=== PATIENT | female | born 1940 | race Caucasian/White ===

== ENCOUNTER 2020-05-10 08:05 | Day surgery (SDC) | payer MEDICARE, BC ==
[~2020-05-10] VITALS: Ht 165.1 cm; Wt 62.6 kg
[2020-05-10] VITALS (10 sets, daily range): BP systolic 133–158; BP diastolic 59–86
[~2020-05-10 08:05] MED LIST: AMLODIPINE BESY10 MG ORAL; LEXAPRO10 MG ORAL; POTASSIUM99 M3 PO; PREMARIN1.25 MG PO; PRESERVISION L1 EACH PO; SIMVASTATIN10 MG ORAL; ceFAZolin sod 1 GM in NS 55 ML IVPB ONE; vitamin D3 PO
--- NOTE | 2020-05-10 08:13 | Pre-Procedure Note/Attestation ---
Pre-Procedure Note/Attestation Complete Prior to Procedure Planned Procedure: not applicable Procedure Narrative: cystocele repair vaginal sling cystoscopy Indications for Procedure Pre-Operative Diagnosis: stress incontinence Attestation I attest that I discussed the nature of the procedure; its benefits; risks and complications; and alternatives (and the risks and benefits of such alternatives ), prior to the procedure, with the patient (or the patient's legal risk control field representative). I attest that, if there was a reasonable possibility of needing a blood transfusion, the patient (or the patient's legal risk control field representative) was given the [facility] standardized written summary, pursuant to the Kasi Morenita Blood Safety Act ([place] Health and Safety Code # 1645, as amended). I attest that I re-evaluated the patient just prior to the surgery and that there has been no change in the patient's H&P, except as documented below: Buster Mendoza MD May 10, 2020 08:13
[2020-05-10] MEDS ORDERED: NeoSporin Gu Irrig 1ml Amp IRRIG ONE (09:16)
[2020-05-10] MEDS ORDERED: Bacitracin 50000 Units Vial ONE (09:16)
[2020-05-10] MEDS ORDERED: LR 1000ml 1,000 ML IVLG SCH (09:55)
--- NOTE | 2020-05-10 09:59 | Anethesia Preoperative Eval ---
Anesthesia Pre-op PMH/ROS General Date of Evaluation: May 10, 2020 Time of Evaluation: 10:42 Anesthesiologist: Horace ASA Score: ASA 3 Mallampati Score Class I : Soft palate, uvula, fauces, pillars visible Class II: Soft palate, uvula, fauces visible Class III: Soft palate, base of uvula visible Class IV: Only hard plate visible Mallampati Classification: Class II Surgeon: Kelly Diagnosis: Abd Pain Surgical Procedure: Vaginal Sling, Cystocele Repair Anesthesia History: none Family History: no anesthesia problems Allergies: Coded Allergies: MEPERIDINE (Verified Allergy, Unknown, 05/08/20) Medications: see eMAR Patient NPO?: Yes Past Medical History Cardiovascular: Reports: HTN, other - HL Neurologic/Psychiatric: Reports: depression/anxiety PSxH Narrative: Cholecystectomy, L Elbow ORIF Anesthesia Pre-op Phys. Exam Physician Exam Last Vital Signs Date Time Temp Pulse Resp B/P (MAP) Pulse Ox O2 Delivery O2 Flow Rate FiO2 05/10/20 08:50 Room Air 05/10/20 08:47 97.0 50 18 138/77 100 Constitutional: NAD Neurologic: CN 2-12 intact Cardiovascular: RRR Respiratory: CTA Gastrointestinal: S/NT/ND Airway Exam Mallampati Score: Class II MO: full ROM: limited Teeth: missing, intact Anesthesia Pre-op A/P Risk Assessment & Plan Assessment: ASA 3 Plan: GA, SED, GlideScope Status Change Before Surgery: No Pre-Antibiotics Dru Gram Ancef IV Given Within 1 Hr of Incision: Yes Time Given: 10:46 Malcolm Vu MD May 10, 2020 09:59
[2020-05-10] MEDS ORDERED: Labetalol 5mg/ml 20ml vial IV PRN (10:00)
[2020-05-10] MEDS ORDERED: Acetaminophen (Non formulary) 100 ML IV ONE (10:00)
[2020-05-10] MEDS ORDERED: Ketorolac 30mg Inj IV PRN ×2 (10:00)
[2020-05-10] MEDS ORDERED: DiphenhydrAMINE 50mg/ml Inj IVP PRN (10:00)
[2020-05-10] MEDS ORDERED: HYDROcodone/Acetamin 7.5/325 tab ORAL PRN (10:00)
[2020-05-10] MEDS ORDERED: oxyCODONE HCL/Acetaminophen 5/325mg ORAL PRN (10:00)
[2020-05-10] MEDS ORDERED: HYDROcodone/Acetamin 5/325 tab ORAL PRN ×2 (10:00→11:30)
[2020-05-10] MEDS ORDERED: LORazepam Inj 2mg/ml 1ml IV PRN (10:00)
[2020-05-10] MEDS ORDERED: Midazolam 2mg/2ml Inj IVP PRN (10:00)
[2020-05-10] MEDS ORDERED: Hydromorphone 0.5mg/0.5ml inj IVP PRN (10:00)
[2020-05-10] MEDS ORDERED: Atropine Sulfate 0.4mg/ml inj IVP PRN (10:00)
[2020-05-10] MEDS ORDERED: Metoclopramide 10mg/2ml Inj IVP PRN (10:00)
--- NOTE | 2020-05-10 10:00 | Immediate Post-Op Evaluation ---
Immediate Post-Op Evalulation Immediate Post-Op Evalulation Procedure: Vaginal Sling, Cystocele Repair Date of Evaluation: May 10, 2020 Time of Evaluation: 11:49 IV Fluids: 800 LR Blood Products: 0 Estimated Blood Loss: 30 Urinary Output: 0 Blood Pressure Systolic: 178 Blood Pressure Diastolic: 99 Pulse Rate: 84 Respiratory Rate: 16 O2 Sat by Pulse Oximetry: 98 Temperature (Fahrenheit): 97.6 Pain Score (1-10): 2 Nausea: No Vomiting: No Complications 0 Patient Status: awake, reacts, patent, extubated, none Hydration Status: adequate Dru Gram Ancef IV Given Within 1 Hr of Incision: Yes Time Given: 10:46 Malcolm Vu MD May 10, 2020 10:00
--- NOTE | 2020-05-10 10:01 | 48 Hour Post Anesthesia Eval ---
Post Anesthesia Evaluation Procedure: Vaginal Sling, Cystocele Repair Date of Evaluation: May 10, 2020 Time of Evaluation: 14:12 Blood Pressure Systolic: 162 0: 74 Pulse Rate: 53 Respiratory Rate: 18 Temperature (Fahrenheit): 98 O2 Sat by Pulse Oximetry: 98 Airway: patent Nausea: No Vomiting: No Pain Intensity: 2 Hydration Status: adequate Cardiopulmonary Status: Stable Mental Status/LOC: patient returned to baseline Follow-up Care/Observations: 0 Post-Anesthesia Complications: 0 Follow-up care needed: ready to discharge Malcolm Vu MD May 10, 2020 10:01
[2020-05-10] MEDS ORDERED: fentaNYL 100 mcg/2 mL IV ONE (10:16)
[2020-05-10] MEDS ORDERED: Midazolam 2mg/2ml Inj ONE (10:16)
[2020-05-10] MEDS ORDERED: Lidocaine 1% MPF 10mg/ml 5ml ONE (10:17)
[2020-05-10] MEDS ORDERED: Sodium Chloride 10ml vial INJ ONE (10:17)
[2020-05-10] MEDS ORDERED: Ketorolac 30mg Inj ONE (10:54)
[2020-05-10] MEDS ORDERED: Glycopyrrolate 0.2mg/ml 1ml Vial ONE ×3 (10:54→11:27)
[2020-05-10] MEDS ORDERED: NS Irrig 1000ml ONE (11:00)
[2020-05-10] MEDS ORDERED: Sterile Water Irrig 1000ml IRRIG ONE (11:00)
[2020-05-10] MEDS ORDERED: Rocuronium Bromide 100mg/10ml Inj IV ONE (11:00)
[2020-05-10] MEDS ORDERED: Neostigmine 1mg/ml 10ml Inj ONE (11:00)
[2020-05-10] MEDS ORDERED: LR 1000ml ONE (11:00)
[2020-05-10] MEDS ORDERED: Tylenol #3 tab (300mg/30mg) ORAL PRN (11:30)
[2020-05-10] MEDS ORDERED: D5 1/2NS 1,000 ML IV SCH (11:30)
[2020-05-10] MEDS ORDERED: HYDROmorphone 1mg/ml Carpuject SUBQ PRN (11:30)
--- NOTE | 2020-05-10 11:31 | Brief Operative Note ---
Immediate Post Operative Note Operative Note Pre-op Diagnosis: stress incontinence Procedure: cystocelel repair vaginal sling cystoscopy Post-op Diagnosis: same Post-op Diagnosis: same as pre-op Surgeon: Leoncio mendoza Specimen: none Complications: none Condition: stable Fluids: 500 Implant(s) used?: No Buster Mendoza MD May 10, 2020 11:31
--- NOTE | 2020-05-10 16:45 | Operative Note - Dictated ---
DATE OF OPERATION: 05/10/2020 PREOPERATIVE DIAGNOSIS: Stress incontinence. POSTOPERATIVE DIAGNOSIS: Stress incontinence. OPERATION: Transvaginal cystocele repair, vaginal wall sling, cystoscopy. [employer] SALESPERSON: Buster Mendoza MD. ANESTHESIA: General. FINDINGS: Open urethra. INDICATION FOR SURGERY: The patient underwent vaginal prolapse repair surgery by Dr. Hansen. She did well postoperatively ; however within a month after surgery developed severe stress incontinence. She was using 3 to 4 pads a day. Repeat cystoscopy and urodynamic shows incompetency urethra. Treatment options were explained to her in great length including all potential complications such as return of the incontinence, bladder perforations, urethral perforations, MIP, . She signed a consent. DESCRIPTION OF OPERATION: Brought to the operating room, placed in lithotomy position. Prepped and draped in standard fashion. Under general anesthesia, a midline incision was made in the anterior vagina. Urethra was exposed. Multiple adhesions from previous surgery was dissected with Metzenbaum scissors. A piece of the old mesh was removed. After that, a [employer] midurethral sling device was placed and secured on both sides to the pubic bone in a non tension fashion. Followed up cystoscopy showed no evidence of bladder perforation. Ureters were intact. Serial [id number] 2-0 Vicryl sutures were placed to reduce central prolapse. After that, vaginal mucosa was closed using 3-0 Vicryl sutures. Patient tolerated the procedure well. Ramos catheter was placed and left indwelling. Vaginal packing. Transferred to recovery in stable condition. No complications. Buster Mendoza M.D. DR: IRIS JOB#: [id number] CC:
== END 2020-05-10 13:45 | disposition home or self-care (01) ==
LOC: SUR 08:05 → EDSTATUS 09:30 → SUR 13:45
DX: N39.3 Stress incontinence (female) (male) (principal); N81.10 Cystocele, unspecified; I10 Essential (primary) hypertension; Z90.49 Acquired absence of other specified parts of digestive tract; Z88.8 Allergy status to other drugs, medicaments and biological substances; F32.9 Major depressive disorder, single episode, unspecified; F41.9 Anxiety disorder, unspecified
CPT/HCPCS: 57240; 57288; 94003; C1771; J0131; J0690; J1100; J1885; J2250; J2405; J2704; J2710; J3010; J7120; 94150